=== PATIENT | male | born 1990 | race Two or more races ===

== ENCOUNTER 2017-02-13 12:41 | Emergency (ER) | payer OTHER ==
--- NOTE | 2017-02-13 14:34 | ER Document Report ---
ED Blood Sugar Problem <SYED MARIA - Last Filed: 02/13/17 16:11> - General Mode of Arrival: Ambulatory Information source: Patient <MILY BULL - Last Filed: 02/21/17 14:04> <VERONICA LUO - Last Filed: 02/22/17 03:22> - General Chief Complaint: High Blood Sugar Stated Complaint: BLOOD SUGAR PROBLEM Time Seen by Provider: 02/13/17 14:26 Notes: Patient is a 26 year old male who presents to the ED with a history of diabetes and concerns for going into DKA. Patient states when he has been checking his sugars today the glucometer kept reading high. Patient states he has been diabetic since age 6. Patient has been running out of his medication more often than he normally does. Patient states he went to the pharmacy but since he is 2 days early on his refill he was unable to do so. Patient has been out of his insulin since yesterday. Patient reports heartburn, nausea, vomiting and more frequent urination. Patient denies diarrhea. Patient states he has been in DKA multiple times but hsa not had an admission since September. Patient moved to the area 2 weeks ago. (MILY BULL) - Related Data Allergies/Adverse Reactions: No Known Allergies Allergy (Unverified 02/14/17 00:06) Past Medical History - General Information source: Patient - Social History Smoking Status: Unknown if Ever Smoked Family History: Reviewed & Not Pertinent Endocrine Medical History: Reports: Hx Diabetes Mellitus Type 2 Renal/ Medical History: Denies: Hx Peritoneal Dialysis <JORGITO,MILY - Last Filed: 02/21/17 14:04> Review of Systems - Review of Systems Constitutional: No symptoms reported EENT: No symptoms reported Cardiovascular: No symptoms reported Respiratory: No symptoms reported Gastrointestinal: See HPI, Nausea, Vomiting. denies: Abdominal pain, Diarrhea Genitourinary: No symptoms reported Male Genitourinary: No symptoms reported Musculoskeletal: No symptoms reported Skin: No symptoms reported Hematologic/Lymphatic: No symptoms reported Neurological/Psychological: No symptoms reported <MILY BULL - Last Filed: 02/21/17 14:04> Physical Exam - General General appearance: Appears well, Alert In distress: None - HEENT Head: Normocephalic, Atraumatic Eyes: Normal Extraocular movements intact: Yes Pupils: PERRL - Respiratory Respiratory status: No respiratory distress Breath sounds: Normal - Cardiovascular Rhythm: Regular Heart sounds: Normal auscultation Murmur: No - Abdominal Inspection: Normal Distension: No distension Tenderness: Nontender - Back Back: Normal - Extremities General upper extremity: Normal inspection, Normal ROM General lower extremity: Normal inspection, Normal ROM - Neurological Neuro grossly intact: Yes - Psychological Associated symptoms: Normal affect, Normal mood - Skin Skin Temperature: Warm Skin Moisture: Dry Skin Color: Normal <MILY BULL - Last Filed: 02/21/17 14:04> Course - Laboratory Result Diagrams: 02/13/17 15:38 02/13/17 15:38 <SYED MARIA - Last Filed: 02/13/17 16:11> - Laboratory Result Diagrams: 02/13/17 15:38 02/13/17 17:10 <MILY BULL - Last Filed: 02/21/17 14:04> - Laboratory Result Diagrams: 02/13/17 15:38 02/13/17 17:10 <VERONICA LUO - Last Filed: 02/22/17 03:22> - Re-evaluation Re-evalutation: 02/13/17 21:55 Patient presents the emergency department concerned that he is in DKA. He says he recently moved here and has been out of his insulin for 2 days. He is nauseated but no vomiting. He says he tried to go to the pharmacy with a told him his refill was 2 days early would not refill it. He denies any headache blurred vision double vision chest pain shortness of breath he denies any abdominal pain says is at increased urination. On examination well-appearing nontoxic no altered mental status heart lungs are clear. Workup is put in place for DKA assessment and evaluation. An Accu-Chek is reading under 300. ( VERONICA LUO) - Vital Signs Vital signs: Temp Pulse Resp BP Pulse Ox 97.5 F 106 H 17 157/84 H 96 02/13/17 20:00 02/13/17 12:49 02/13/17 20:00 02/13/17 19:58 02/13/17 20:00 - Laboratory Laboratory results interpreted by me: 02/13/17 02/13/17 02/13/17 12:50 14:42 15:00 WBC RBC Seg Neutrophils % Lymphocytes % Monocytes % Absolute Neutrophils Carbonic Acid ABG pCO2 ABG pO2 ABG HCO3 ABG Total CO2 ABG O2 Saturation Carbon Dioxide Anion Gap BUN Glucose POC Glucose 432 H* 367 H Urine Protein 30 H Urine Glucose (UA) >=500 H Urine Ketones 80 H 02/13/17 02/13/17 02/13/17 15:38 15:38 17:10 WBC 12.7 H RBC 5.56 H Seg Neutrophils % 84.5 H Lymphocytes % 12.0 L Monocytes % 2.7 L Absolute Neutrophils 10.7 H Carbonic Acid 0.92 L ABG pCO2 30.6 L ABG pO2 124.4 H ABG HCO3 17.5 L ABG Total CO2 18.4 L ABG O2 Saturation 98.4 H Carbon Dioxide 18 L Anion Gap 21 H BUN 21 H Glucose 310 H POC Glucose Urine Protein Urine Glucose (UA) Urine Ketones 02/13/17 18:19 WBC RBC Seg Neutrophils % Lymphocytes % Monocytes % Absolute Neutrophils Carbonic Acid ABG pCO2 ABG pO2 ABG HCO3 ABG Total CO2 ABG O2 Saturation Carbon Dioxide Anion Gap BUN Glucose POC Glucose 202 H Urine Protein Urine Glucose (UA) Urine Ketones Discharge <SYED MARIA - Last Filed: 02/13/17 16:11> <MILY BULL - Last Filed: 02/21/17 14:04> <VERONICA LUO - Last Filed: 02/22/17 03:22> - Discharge Clinical Impression: Type 1 diabetes mellitus with hyperglycemia Condition: Stable Disposition: HOME, SELF-CARE Additional Instructions: RESUME TAKING INSULIN PRESCRIBED BY YOUR PRIMARY CARE PROVIDER. FOLLOW YOUR RECOMMENDED DIABETIC DIET. FOLLOW UP WITH YOUR PRIMARY CARE PROVIDER WITHIN THE NEXT 2-3 DAYS. RETURN TO E.R. IF YOU GET WORSE IN ANY WAY. Scribe Attestation: 02/13/17 21:57 I personally performed the services described in the documentation reviewed the documentation recorded by my scribe in my presence and it accurately and completely records my words and actions (VERONICA LUO) Scribe Documentation - Scribe Written by Camiibe:: keri Feldman, 02/13/2017, 1446 acting as scribe for :: Rd <MILY BULL - Last Filed: 02/21/17 14:04>
[2017-02-13] MEDS ORDERED: NORMAL SALINE 1000 ML 3,000 ML IV ONE (14:41)
[2017-02-13] MEDS ORDERED: INSULIN REG, HUMAN 100 UNIT/ML 3 ML VIAL (PYX) IV ONE (14:43)
[2017-02-13 15:33] LABS: APPEARANCE,URINE CLEAR; BILIRUBIN,URINE NEGATIVE (NEGATIVE); GLUCOSE, URINE >=500 mg/dL (NEGATIVE); KETONES,URINE 80 mg/dL (NEGATIVE); LEUKOCYTE ESTERASE,URINE NEGATIVE (NEGATIVE); NITRITE,URINE NEGATIVE (NEGATIVE); PROTEIN,URINE 30 mg/dL (NEGATIVE); URINE SPECIFIC GRAVITY 1.029; UROBILINOGEN,URINE NEGATIVE mg/dL (<2.0)
[2017-02-13] MEDS ORDERED: ONDANSETRON HCL INJ/PF 4 MG/2 ML SDV IV ONE (15:54)
[2017-02-13] MEDS ORDERED: NORMAL SALINE 100 ML with INSULIN REGULAR, HUMAN 100 UNIT IV PRN ×2 (15:55)
[2017-02-13 16:01] LABS: ABSOLUTE BASOPHILS # (AUTO) 0.1 10^3/uL (0.0-0.2); ABSOLUTE LYMPHOCYTES (AUTO) 1.5 10^3/uL (0.5-4.7); ABSOLUTE MONOCYTES (AUTO) 0.3 10^3/uL (0.1-1.4); ABSOLUTE NEUT (AUTO) 10.7 10^3/uL (1.7-8.2); ARTERIAL BLOOD BASE EXCESS -6.2 mmol/L; ARTERIAL BLOOD O2 SATURATION 98.4 % (94-98); BASOPHILS % (AUTO) 0.5 % (0-2); EOSINOPHILS % (AUTO) 0.3 % (0-6); HEMATOCRIT 49.4 % (37.9-51.0); HEMOGLOBIN 16.5 g/dL (13.5-17.0); HGB HCT DIFFERENCE 0.1; MEAN CORPUSCULAR HEMOGLOBIN 29.7 pg (27.0-33.4); MEAN CORPUSCULAR HGB CONC 33.4 g/dL (32.0-36.0); MEAN CORPUSCULAR VOLUME 89 fl (80-97); MONOCYTES % (AUTO) 2.7 % (3-13); RED BLOOD COUNT 5.56 10^6/uL (4.35-5.55); RED CELL DISTRIBUTION WIDTH 13.7 % (11.5-14.0); SEGMENTED NEUTROPHILS % (AUTO) 84.5 % (42-78); WHITE BLOOD COUNT 12.7 10^3/uL (4.0-10.5)
--- NOTE | 2017-02-13 17:30 | ER Document Report ---
ED Blood Sugar Problem - General Chief Complaint: High Blood Sugar Stated Complaint: BLOOD SUGAR PROBLEM Time Seen by Provider: 02/13/17 14:26 Mode of Arrival: Ambulatory Information source: Patient - HPI Onset: Yesterday Onset/Duration: Gradual Quality of pain: No pain Severity: Moderate Insulin taken: No - RAN OUT Associated symptoms: Dry mucous membranes, Increased thirst, Nausea, Vomiting Similar symptoms previously: Yes Recently seen / treated by doctor: No Notes: PATIENT SAYS HE RAN OUT OF INSULIN YESTERDAY, UNABLE TO GET REFILL DUE TO NO INSURANCE COVERAGE UNTIL 02/15 (RAN OUT PREMATURELY DUE TO CHANGE IN DOSAGE). Past Medical History - General Information source: Patient - Social History Smoking Status: Unknown if Ever Smoked Chew tobacco use (# tins/day): No Smoking Education Provided: No Frequency of alcohol use: Rare Drug Abuse: None Lives with: Friend Family History: None Patient has suicidal ideation: No Patient has homicidal ideation: No - Past Medical History Cardiac Medical History: Reports: None Pulmonary Medical History: Reports: None EENT Medical History: Reports: None Neurological Medical History: Reports: None Endocrine Medical History: Reports: Hx Diabetes Mellitus Type 1 Renal/ Medical History: Reports: None. Denies: Hx Peritoneal Dialysis Malignancy Medical History: Reports None GI Medical History: Reports: None Musculoskeltal Medical History: Reports None Psychiatric Medical History: Reports: None Traumatic Medical History: Reports: None Surgical Hx: Negative Review of Systems - Review of Systems Constitutional: No symptoms reported EENT: No symptoms reported Cardiovascular: No symptoms reported Respiratory: No symptoms reported Gastrointestinal: See HPI Genitourinary: No symptoms reported Musculoskeletal: No symptoms reported Skin: No symptoms reported Neurological/Psychological: No symptoms reported Physical Exam - Vital signs Vitals: Temp Pulse Resp BP Pulse Ox 97.6 F 106 H 18 136/89 H 98 02/13/17 12:49 02/13/17 12:49 02/13/17 12:49 02/13/17 12:49 02/13/17 12:49 Interpretation: Hypertensive, Tachycardic. No: Tachypneic, Febrile - General General appearance: Appears well, Alert In distress: None - HEENT Head: Normocephalic Eyes: Normal Conjunctiva: Normal Ears: Normal Nasal: Normal Mouth/Lips: Normal Mucous membranes: Dry Pharynx: Normal Neck: Normal - Respiratory Respiratory status: No respiratory distress Breath sounds: Normal - Cardiovascular Rhythm: Regular, Tachycardia Heart sounds: Normal auscultation Murmur: No - Abdominal Inspection: Normal Distension: No distension Bowel sounds: Normal - Back Back: Normal - Extremities General upper extremity: Normal inspection General lower extremity: Normal inspection - Neurological Neuro grossly intact: Yes Cognition: Normal Orientation: AAOx4 - Psychological Associated symptoms: Normal affect, Normal mood - Skin Skin Temperature: Warm Skin Moisture: Dry Skin Color: Normal Skin Turgor: Loose Course - Vital Signs Vital signs: Temp Pulse Resp BP Pulse Ox 97.6 F 106 H 17 142/64 H 100 02/13/17 12:49 02/13/17 12:49 02/13/17 19:01 02/13/17 19:01 02/13/17 19:01 - Laboratory Result Diagrams: 02/13/17 15:38 02/13/17 17:10 Laboratory results interpreted by me: 02/13/17 02/13/17 02/13/17 12:50 14:42 15:00 WBC RBC Seg Neutrophils % Lymphocytes % Monocytes % Absolute Neutrophils Carbonic Acid ABG pCO2 ABG pO2 ABG HCO3 ABG Total CO2 ABG O2 Saturation Carbon Dioxide Anion Gap BUN Glucose POC Glucose 432 H* 367 H Urine Protein 30 H Urine Glucose (UA) >=500 H Urine Ketones 80 H 02/13/17 02/13/17 02/13/17 15:38 15:38 17:10 WBC 12.7 H RBC 5.56 H Seg Neutrophils % 84.5 H Lymphocytes % 12.0 L Monocytes % 2.7 L Absolute Neutrophils 10.7 H Carbonic Acid 0.92 L ABG pCO2 30.6 L ABG pO2 124.4 H ABG HCO3 17.5 L ABG Total CO2 18.4 L ABG O2 Saturation 98.4 H Carbon Dioxide 18 L Anion Gap 21 H BUN 21 H Glucose 310 H POC Glucose Urine Protein Urine Glucose (UA) Urine Ketones 02/13/17 18:19 WBC RBC Seg Neutrophils % Lymphocytes % Monocytes % Absolute Neutrophils Carbonic Acid ABG pCO2 ABG pO2 ABG HCO3 ABG Total CO2 ABG O2 Saturation Carbon Dioxide Anion Gap BUN Glucose POC Glucose 202 H Urine Protein Urine Glucose (UA) Urine Ketones Discharge - Discharge Clinical Impression: Hyperglycemia due to type 1 diabetes mellitus Condition: Stable Disposition: HOME, SELF-CARE Additional Instructions: RESUME TAKING INSULIN PRESCRIBED BY YOUR PRIMARY CARE PROVIDER. FOLLOW YOUR RECOMMENDED DIABETIC DIET. FOLLOW UP WITH YOUR PRIMARY CARE PROVIDER WITHIN THE NEXT 2-3 DAYS. RETURN TO E.R. IF YOU GET WORSE IN ANY WAY. Prescriptions: Insulin Glargine,Hum.rec.anlog [Lantus] 23 unit SQ QHS #10 ml Insulin Lispro [Humalog] See Protocol SQ DAILY #10 ml
[2017-02-13 17:38] LABS: BLOOD UREA NITROGEN 21 mg/dL (7-20); CALCIUM 9.8 mg/dL (8.4-10.2); CHLORIDE 101 mmol/L (98-107); GLUCOSE 310 mg/dL (75-110)
[2017-02-13 18:04] LABS: CARBON DIOXIDE 18 mmol/L (22-30); POTASSIUM 4.6 mmol/L (3.6-5.0); SODIUM 139.7 mmol/L (137-145)
[2017-02-13 18:05] LABS: ANION GAP 21 (5-19)
[2017-02-13] MEDS ORDERED: INSULIN REG, HUMAN 100 UNIT/ML 3 ML VIAL (PYX) ONE (18:07)
[2017-02-13 20:06] VITALS: BP 157/84
== END 2017-02-13 20:06 | disposition home or self-care (01) ==
LOC: ER 12:41
DX: E10.65 Type 1 diabetes mellitus with hyperglycemia (principal); R12 Heartburn; R00.0 Tachycardia, unspecified; R03.0 Elevated blood-pressure reading, without diagnosis of hypertension
CPT/HCPCS: 99285; 96361; 96374; 36415; 82962; 82803; 85025; 80048; 81001; J1815; J2405; J7030

== ENCOUNTER 2017-02-13 23:50 | Inpatient (IN) | payer OTHER ==
[2017-02-14] MEDS ORDERED: ONDANSETRON HCL INJ/PF 4 MG/2 ML SDV IV ONE (00:59)
[2017-02-14] MEDS ORDERED: NORMAL SALINE 1000 ML 1,000 ML IV ONE ×3 (00:59→02:29)
--- NOTE | 2017-02-14 01:02 | ER Document Report ---
ED General - General Chief Complaint: High Blood Sugar Stated Complaint: SEEN EARLIER FOR BLOOD SUGAR PROBLEMS, FEELS WORSE Time Seen by Provider: 02/14/17 00:54 Notes: Patient is a 26-year-old male, type I diabetic, that was seen here earlier today and went home but returns after he began to feel worse and he began to vomit. He had only vomited once earlier and he states he was hoping he could make it through the night and fill his scripts in the morning. He has vomited 7 times in the past hour. Patient states that he was unable to make the pharmacy to fill the prescription of insulin that he was given, he moved here from [place] 2 weeks ago and he was unable to fill his prescription like usual until 2 days from now. - Related Data Allergies/Adverse Reactions: No Known Allergies Allergy (Unverified 02/14/17 00:06) Past Medical History - General Information source: Patient - Social History Smoking Status: Never Smoker Frequency of alcohol use: None Drug Abuse: None Lives with: Family - brother Family History: None Endocrine Medical History: Reports: Hx Diabetes Mellitus Type 1 Renal/ Medical History: Denies: Hx Peritoneal Dialysis Surgical Hx: Negative - Immunizations Immunizations up to date: Yes Hx Diphtheria, Pertussis, Tetanus Vaccination: Yes Review of Systems - Review of Systems Constitutional: See HPI EENT: No symptoms reported Cardiovascular: No symptoms reported Respiratory: No symptoms reported Gastrointestinal: See HPI Genitourinary: No symptoms reported Male Genitourinary: No symptoms reported Musculoskeletal: No symptoms reported Skin: No symptoms reported Hematologic/Lymphatic: No symptoms reported Neurological/Psychological: No symptoms reported Physical Exam - Vital signs Vitals: Temp Pulse Resp BP Pulse Ox 97.8 F 108 H 20 143/72 H 100 02/14/17 00:08 02/14/17 00:08 02/14/17 00:08 02/14/17 00:08 02/14/17 00:08 Interpretation: Normal - General General appearance: Alert, Anxious In distress: Mild - Patient with mild tachypnea, slightly pale, appears uncomfortable - HEENT Head: Normocephalic, Atraumatic Eyes: Normal Pupils: PERRL - Respiratory Respiratory status: No respiratory distress, Tachypnea - slight Breath sounds: Normal Chest palpation: Normal - Cardiovascular Rhythm: Regular, Tachycardia Heart sounds: Normal auscultation, S1 appreciated, S2 appreciated Murmur: No - Abdominal Inspection: Normal Distension: No distension Bowel sounds: Normal Tenderness: Tender - Very mild generalized tenerness. No: Guarding Organomegaly: No organomegaly - Back Back: Normal, Nontender - Extremities General upper extremity: Normal inspection, Nontender, Normal color, Normal ROM , Normal temperature General lower extremity: Normal inspection, Nontender, Normal color, Normal ROM , Normal temperature, Normal weight bearing. No: Ronda's sign - Neurological Neuro grossly intact: Yes Cognition: Normal Orientation: AAOx4 [place] Coma Scale Eye Opening: Spontaneous [place] Coma Scale Verbal: Oriented [place] Coma Scale Motor: Obeys Commands [place] Coma Scale Total: 15 Speech: Normal Motor strength normal: LUE, RUE, LLE, RLE Sensory: Normal - Psychological Associated symptoms: Normal affect, Normal mood - Skin Skin Temperature: Warm Skin Moisture: Dry Skin Color: Pale Course - Re-evaluation Re-evalutation: Patient with Kussmaul respirations, vomited at bedside, is slightly pale, tachycardic, and well-appearing. Consistent with diabetic ketoacidosis. Giving Zofran, IV fluids, placed on monitor. Placing 2 IVs. Patient given additional fluids, initial blood gas shows acidosis at pH of 7.15. Chemistry shows hyperkalemia at 5.9, anion gap is present. Starting insulin drip. EKG showing peaked T waves. Giving calcium gluconate. CBC shows leukocytosis, nonspecific, most likely stress response and from vomiting. Urinalysis shows ketones. On re-evaluation patient stopped vomiting, still tachycardic, no significant change. Discussed with Dr. Avilez. Patient starting to look more comfortable, breathing improved, resting quietly, still oriented and arousable. Discussed with Dr. Connor, patient will be admitted to IMCU. - Vital Signs Vital signs: Temp Pulse Resp BP Pulse Ox 98.5 F 118 H 20 148/75 H 100 02/14/17 06:03 02/14/17 06:03 02/14/17 06:03 02/14/17 06:03 02/14/17 06:03 - Laboratory Result Diagrams: 02/14/17 02:56 02/14/17 03:58 Laboratory results interpreted by me: 02/14/17 02/14/17 02/14/17 01:44 01:44 01:44 WBC RBC Hgb Seg Neuts % (Manual) Lymphocytes % (Manual) Monocytes % (Manual) Metamyelocytes % Abs Neuts (Manual) VBG pH 7.15 L* VBG pCO2 29.2 L VBG HCO3 10.0 L Potassium 5.9 H D Carbon Dioxide 7 L* D Anion Gap 27 H Glucose 424 H* Phosphorus 5.0 H Direct Bilirubin 0.5 H Urine Protein Urine Glucose (UA) Urine Ketones 02/14/17 02/14/17 02:52 02:56 WBC 23.6 H RBC 4.34 L Hgb 12.8 L D Seg Neuts % (Manual) 84 H Lymphocytes % (Manual) 9 L Monocytes % (Manual) 2 L Metamyelocytes % 2 H Abs Neuts (Manual) 21.0 H VBG pH VBG pCO2 VBG HCO3 Potassium Carbon Dioxide Anion Gap Glucose Phosphorus Direct Bilirubin Urine Protein 30 H Urine Glucose (UA) >=500 H Urine Ketones 80 H Critical Care Note - Critical Care Note Total time excluding time spent on procedures (mins): 35 - Diabetic ketoacidosis , vomiting, hyperkalemia Comments: Please allow 35 minutes of critical care time for evaluation and treatment of patient with diabetic ketoacidosis and hyperkalemia requiring multiple re- evaluations, review of previous labs, IV fluids, insulin drip, calcium gluconate , consultation and admission to the hospital. Discharge - Discharge Clinical Impression: Tachycardia, Hyperkalemia DKA (diabetic ketoacidoses) Qualifiers: Diabetes mellitus type: type 1 Diabetes mellitus complication detail: without coma Qualified Code(s): E10.10 - Type 1 diabetes mellitus with ketoacidosis without coma Vomiting Qualifiers: Vomiting type: unspecified Vomiting Intractability: non-intractable Nausea presence: with nausea Qualified Code(s): R11.2 - Nausea with vomiting, unspecified Condition: Fair Disposition: ADMITTED INPATIENT Admitting Provider: Hospitalist Unit Admitted: [facility]
[2017-02-14] MEDS ORDERED: DEXTROSE 40% GEL 15 GM TUBE PO PRN ×4 (01:59→03:38)
[2017-02-14] MEDS ORDERED: GLUCAGON,HUMAN RECOMB 1 MG INJ IM PRN ×2 (01:59→03:38)
[2017-02-14] MEDS ORDERED: DEXTROSE 50%-WATER 25 GM/50 ML DISP.SYRIN IV PRN ×4 (01:59→03:38)
[2017-02-14 02:01] LABS: VENOUS BLOOD BASE EXCESS -17.5 mmol/L; VENOUS BLOOD PCO2 29.2 mmHg (35-63)
[2017-02-14] MEDS ORDERED: NORMAL SALINE 100 ML with INSULIN REGULAR, HUMAN 100 UNIT IV PRN ×6 (02:01→18:38)
[2017-02-14 02:07] LABS: VENOUS BLOOD PH 7.15 (7.30-7.42)
[2017-02-14 02:10] LABS: ALANINE AMINOTRANSFERASE 30 U/L (21-72); ALBUMIN 4.6 g/dL (3.5-5.0); ALKALINE PHOSPHATASE 85 U/L (38-126); ASPARTATE AMINO TRANSFERASE 19 U/L (17-59); BILIRUBIN,DIRECT 0.5 mg/dL (0.0-0.4); BLOOD UREA NITROGEN 19 mg/dL (7-20); CALCIUM 10.1 mg/dL (8.4-10.2); CHLORIDE 105 mmol/L (98-107); CREATININE RESULT 0.85 mg/dL (0.52-1.25); TOTAL PROTEIN 8.1 g/dL (6.3-8.2)
[2017-02-14 02:23] LABS: SODIUM 139.2 mmol/L (137-145)
[2017-02-14 02:27] LABS: ANION GAP 27 (5-19); POTASSIUM 5.9 mmol/L (3.6-5.0)
[2017-02-14 02:29] LABS: CARBON DIOXIDE 7 mmol/L (22-30); GLUCOSE 424 mg/dL (75-110)
[2017-02-14] MEDS ORDERED: CALCIUM GLUCONATE 1000 MG/10 ML INJ IV ONE (02:29)
[2017-02-14] MEDS ORDERED: INSULIN REG, HUMAN 100 UNIT/ML 3 ML VIAL (PYX) ONE (02:41)
[2017-02-14 03:12] LABS: HEMATOCRIT 39.4 % (37.9-51.0); MEAN CORPUSCULAR HEMOGLOBIN 29.5 pg (27.0-33.4); MEAN CORPUSCULAR HGB CONC 32.5 g/dL (32.0-36.0); MEAN CORPUSCULAR VOLUME 91 fl (80-97); RED BLOOD COUNT 4.34 10^6/uL (4.35-5.55); RED CELL DISTRIBUTION WIDTH 13.8 % (11.5-14.0); WHITE BLOOD COUNT 23.6 10^3/uL (4.0-10.5)
[2017-02-14 03:25] LABS: HEMOGLOBIN 12.8 g/dL (13.5-17.0)
[2017-02-14 03:27] LABS: BAND NEUTROPHILS % (MANUAL) 3 % (3-5); BASOPHILS % (MANUAL) 0 % (0-2); EOSINOPHILS % (MANUAL) 0 % (0-6); LYMPHOCYTES % (MANUAL) 9 % (13-45); TOTAL CELLS COUNTED 100
[2017-02-14 03:30] LABS: ANISOCYTOSIS SLIGHT; BURR CELLS 2+; POIKILOCYTOSIS 2+; TEAR DROP CELLS SLIGHT; TOXIC GRANULATION SLIGHT
[2017-02-14] MEDS ORDERED: ONDANSETRON HCL INJ/PF 4 MG/2 ML SDV IV PRN ×2 (03:38→07:24)
[2017-02-14] MEDS ORDERED: ACETAMINOPHEN 325 MG TABLET PO PRN (03:38)
[2017-02-14 03:41] LABS: APPEARANCE,URINE CLEAR; BILIRUBIN,URINE NEGATIVE (NEGATIVE); GLUCOSE, URINE >=500 mg/dL (NEGATIVE); KETONES,URINE 80 mg/dL (NEGATIVE); LEUKOCYTE ESTERASE,URINE NEGATIVE (NEGATIVE); NITRITE,URINE NEGATIVE (NEGATIVE); PROTEIN,URINE 30 mg/dL (NEGATIVE); URINE SPECIFIC GRAVITY 1.017; UROBILINOGEN,URINE NEGATIVE mg/dL (<2.0)
[2017-02-14 04:01] LABS: MAGNESIUM 1.8 mg/dL (1.6-2.3)
[2017-02-14 04:11] LABS: URINE BARBITURATES SCREEN NEGATIVE; URINE METHADONE SCREEN NEGATIVE; URINE OPIATES LOW NEGATIVE; URINE PHENCYCLIDINE SCREEN NEGATIVE
[2017-02-14 04:30] LABS: BLOOD UREA NITROGEN 18 mg/dL (7-20); CALCIUM 9.7 mg/dL (8.4-10.2); CHLORIDE 111 mmol/L (98-107); CREATININE RESULT 0.84 mg/dL (0.52-1.25); GLUCOSE 337 mg/dL (75-110); POTASSIUM 5.7 mmol/L (3.6-5.0); SODIUM 140.4 mmol/L (137-145)
[2017-02-14 04:54] LABS: CARBON DIOXIDE < 5 mmol/L (22-30)
--- NOTE | 2017-02-14 05:47 | PDOC H&P ---
History of Present Illness Admission Date/PCP: 02/14/17 03:38 Patient complains of: Hyperglycemia nausea and vomiting History of Present Illness: JUAN PABLO COREY is a 26 year old male with a past medical history of insulin- dependent diabetes who has had limited access to limits he is recently relocated to the area from [place]. He has otherwise felt well but rationing his insulin over the last few days. Over the last 24 hours he has had polyuria polydipsia abdominal pain nausea vomiting prompting her to seek evaluation emergency room earlier in the day was found to be without acidosis and was discharged with a insulin prescription however became acutely worse prompting reevaluation and significantly worse labs including a bicarb of only 7 and increased anion gap. He is referred to the hospital for admission. Past Medical History Endocrine Medical History: Reports: Diabetes Mellitus Type 1 Social History Information Source: Patient, [facility], [facility] Records Lives with: Family Smoking Status: Never Smoker Frequency of Alcohol Use: None Drugs: None Family History Family History: None Parental Family History Reviewed: Yes Children Family History Reviewed: Yes Sibling(s) Family History Reviewed.: Yes Medication/Allergy Home Medications: Insulin Glargine,Hum.rec.anlog [Lantus] 23 unit SQ QHS #10 ml 02/13/17 Insulin Lispro [Humalog] See Protocol SQ DAILY #10 ml 02/13/17 Allergies/Adverse Reactions: No Known Allergies Allergy (Unverified 02/14/17 00:06) Review of Systems Constitutional: ABSENT: chills, fever(s), headache(s), weight gain, weight loss Eyes: ABSENT: visual disturbances Ears: ABSENT: hearing changes Cardiovascular: ABSENT: chest pain, dyspnea on exertion, edema, orthropnea, palpitations Respiratory: ABSENT: cough, hemoptysis Gastrointestinal: ABSENT: abdominal pain, constipation, diarrhea, hematemesis, hematochezia, nausea, vomiting Genitourinary: ABSENT: dysuria, hematuria Musculoskeletal: ABSENT: joint swelling Integumentary: ABSENT: rash, wounds Neurological: ABSENT: abnormal gait, abnormal speech, confusion, dizziness, focal weakness, syncope Psychiatric: ABSENT: anxiety, depression, homidical ideation, suicidal ideation Endocrine: ABSENT: cold intolerance, heat intolerance, polydipsia, polyuria Hematologic/Lymphatic: ABSENT: easy bleeding, easy bruising Physical Exam Vital Signs: Temp Pulse Resp BP Pulse Ox 97.8 F 108 H 17 117/57 L 100 02/14/17 00:08 02/14/17 00:08 02/14/17 05:01 02/14/17 05:01 02/14/17 05:01 General appearance: PRESENT: cooperative, mild distress, thin, well-developed, well-nourished Head exam: PRESENT: atraumatic, normocephalic Eye exam: PRESENT: conjunctiva pink, EOMI, PERRLA. ABSENT: scleral icterus Ear exam: PRESENT: normal external ear exam Mouth exam: PRESENT: dry mucosa, neck supple. ABSENT: laceration, moist Neck exam: ABSENT: carotid bruit, JVD, lymphadenopathy, thyromegaly Respiratory exam: PRESENT: clear to auscultation lynsday, tachypnea. ABSENT: rales , rhonchi, wheezes Cardiovascular exam: PRESENT: RRR, tachycardia. ABSENT: diastolic murmur, rubs , systolic murmur Pulses: PRESENT: normal dorsalis pedis pul Vascular exam: PRESENT: normal capillary refill GI/Abdominal exam: PRESENT: normal bowel sounds, soft. ABSENT: distended, guarding, mass, organolmegaly, rebound, tenderness Rectal exam: PRESENT: deferred Extremities exam: PRESENT: full ROM. ABSENT: calf tenderness, clubbing, pedal edema Neurological exam: PRESENT: alert, awake, oriented to person, oriented to place , oriented to time, oriented to situation, CN II-XII grossly intact. ABSENT: motor sensory deficit Psychiatric exam: PRESENT: appropriate affect, normal mood. ABSENT: homicidal ideation, suicidal ideation Skin exam: PRESENT: abrasion Results Laboratory Results: 02/14/17 03:58 02/14/17 03:58 Sodium 140.4 Potassium 5.7 H Chloride 111 H Carbon Dioxide < 5 L* Anion Gap [facility] BUN 18 Creatinine 0.84 Est GFR ( Amer) > 60 Est GFR (Non-Af Amer) > 60 Glucose 337 H Calcium 9.7 Assessment & Plan - Diagnosis (1) DKA (diabetic ketoacidoses) Qualifiers: Diabetes mellitus type: type 1 Diabetes mellitus complication detail: without coma Qualified Code(s): E10.10 - Type 1 diabetes mellitus with ketoacidosis without coma Is this a current diagnosis for this admission?: YesPlan: Severe diabetic ketoacidosis secondary to insufficient insulin. Patient admitted to [facility] with DKA care set aggressive IV fluid hydration, IV insulin and electrolyte repletion recurrent reevaluation of chemistry education. (2) Tachycardia Is this a current diagnosis for this admission?: YesPlan: Secondary to acidosis and dehydration resolved underlying cause and IV fluid challenge. (3) Vomiting Qualifiers: Vomiting type: unspecified Vomiting Intractability: non-intractable Nausea presence: with nausea Qualified Code(s): R11.2 - Nausea with vomiting, unspecified Is this a current diagnosis for this admission?: YesPlan: Secondary to DKA, symptomatic management - Time Time Spent: 30 to 50 Minutes - Inpatient Certification Medical Necessity: Need Close Monitoring Due to Risk of Patient Decompensation
[2017-02-14] MEDS: NORMAL SALINE 1000 ML 1,000 ML IV SCH ×2 (06:01→08:58)
[2017-02-14] MEDS: HEPARIN SOD (PORCINE) 5,000 UNIT/ML 1 ML SYRINGE SUBCUT SCH ×3 (06:17→21:33)
[2017-02-14 08:02] LABS: ANION GAP 17 (5-19); BLOOD UREA NITROGEN 15 mg/dL (7-20); CALCIUM 9.1 mg/dL (8.4-10.2); CARBON DIOXIDE 11 mmol/L (22-30); CHLORIDE 115 mmol/L (98-107); CREATININE RESULT 0.74 mg/dL (0.52-1.25); GLUCOSE 145 mg/dL (75-110)
[2017-02-14 08:11] LABS: POTASSIUM 4.7 mmol/L (3.6-5.0)
[2017-02-14] MEDS: DOCUSATE SODIUM 100 MG CAPSULE PO SCH ×2 (09:27→16:24)
[2017-02-14] MEDS: ONDANSETRON HCL INJ/PF 4 MG/2 ML SDV IV PRN ×2 (09:58→18:14)
--- NOTE | 2017-02-14 11:32 | PDOC PROGRESS REPORT ---
Subjective Progress Note for:: 02/14/17 Subjective:: This is a follow-up visit for DKA. The patient was seen and had complaints of some nausea that he said was relieved by Zosyn. He would like to try some clear liquids but does not feel comfortable going further than that because of the GI upset. He denies any chest pain or shortness of breath. Physical Exam Vital Signs: Temp Pulse Resp BP Pulse Ox 98.9 F 119 H 14 138/61 H 100 02/14/17 07:46 02/14/17 07:46 02/14/17 07:46 02/14/17 07:46 02/14/17 07:46 GENERAL: This is a well-developed thin/underweight appearing male resting in bed currently in no acute distress. HEART: Tachycardic. No murmurs rubs or gallops LUNGS: Clear to auscultation bilaterally with equal rise and fall of the chest. ABDOMEN: Soft, nontender, nondistended with normoactive bowel sounds EXTREMETIES: No clubbing, cyanosis or edema. 2+ peripheral pulses bilaterally. NEURO: Awake, alert and oriented 3. Cranial nerves II through XII are grossly intact. Results Laboratory Results: 02/14/17 07:40 02/14/17 02/14/17 03:58 07:40 Sodium 140.4 143.0 Potassium 5.7 H 4.7 D Chloride 111 H 115 H Carbon Dioxide < 5 L* 11 L Anion Gap UAT TESTER 17 BUN 18 15 Creatinine 0.84 0.74 Est GFR ( Amer) > 60 > 60 Est GFR (Non-Af Amer) > 60 > 60 Glucose 337 H 145 H Calcium 9.7 9.1 Assessment & Plan - Diagnosis (1) DKA (diabetic ketoacidoses) Qualifiers: Diabetes mellitus type: type 1 Diabetes mellitus complication detail: without coma Qualified Code(s): E10.10 - Type 1 diabetes mellitus with ketoacidosis without coma Is this a current diagnosis for this admission?: YesPlan: The patient has a blood sugar under 250 however he still has an anionic gap. Will change to lactated Ringer's. Discontinue insulin drip once the gap is closed. Patient tells me that he has prescriptions for his insulin. Part of the problem was that he had to stretch his insulin for 2 days before he could fill it because insurance would not pay for it. The patient does have insurance and is confident that now that the month has renewed itself he will be able to get his insulin as an outpatient. He is confirmed for me that he does not need any prescriptions. (2) Hyperkalemia Plan: Resolved. (3) Tachycardia Is this a current diagnosis for this admission?: YesPlan: the patient remains tachycardic. He can confirms for me that he usually has a high heart rate. We will see what his heart rate does as he is appropriately resuscitated. (4) Vomiting Qualifiers: Vomiting type: unspecified Vomiting Intractability: non-intractable Nausea presence: with nausea Qualified Code(s): R11.2 - Nausea with vomiting, unspecified Is this a current diagnosis for this admission?: YesPlan: Resolved. But the patient still feels nauseous. Continue Zofran. I will place him on a regular diet. He has instructions to begin with clear liquids and to advance himself as tolerated. (5) Leukocytosis Plan: White count is at 23 at this point I suspect that this is likely due to volume contraction from nausea vomiting and then his underlying DKA. Repeat CBC in the morning. The patient is completely afebrile and has a nontoxic appearance. Continue to monitor. If the patient does spike a fever we will certainly check blood cultures and begin antibiotics. - Time Time Spent with patient: 25-34 minutes - Inpatient Certification Medical Necessity: Need Close Monitoring Due to Risk of Patient Decompensation
[2017-02-14] MEDS ORDERED: INSULIN REG, HUMAN 100 UNIT/ML 3 ML VIAL (PYX) SUBCUT PRN (11:37)
[2017-02-14] MEDS ORDERED: LISINOPRIL 5 MG TABLET PO ONE (12:30)
[2017-02-14 12:32] LABS: ANION GAP 18 (5-19); BLOOD UREA NITROGEN 12 mg/dL (7-20); CALCIUM 9.3 mg/dL (8.4-10.2); CARBON DIOXIDE 11 mmol/L (22-30); CHLORIDE 113 mmol/L (98-107); CREATININE RESULT 0.77 mg/dL (0.52-1.25); GLUCOSE 144 mg/dL (75-110); POTASSIUM 4.7 mmol/L (3.6-5.0); SODIUM 141.5 mmol/L (137-145)
--- NOTE | 2017-02-14 13:59 | EKG REPORT ---
SEVERITY:- OTHERWISE NORMAL ECG - SINUS TACHYCARDIA : Confirmed by: Janet Burk MD 14-Feb-2017 13:58:59
[2017-02-14] MEDS ORDERED: METOCLOPRAMIDE HCL INJ/PF 10 MG/2 ML SDV IV PRN (14:19)
[2017-02-14 16:44] LABS: BLOOD UREA NITROGEN 15 mg/dL (7-20); CALCIUM 9.9 mg/dL (8.4-10.2); CREATININE RESULT 0.82 mg/dL (0.52-1.25); GLUCOSE 341 mg/dL (75-110); POTASSIUM 5.2 mmol/L (3.6-5.0)
[2017-02-14 16:56] LABS: CHLORIDE 111 mmol/L (98-107)
[2017-02-14 17:03] LABS: SODIUM 142.8 mmol/L (137-145)
[2017-02-14 17:06] LABS: ANION GAP 25 (5-19)
[2017-02-14 17:09] LABS: CARBON DIOXIDE 7 mmol/L (22-30)
[2017-02-14] MEDS ORDERED: DEXTROSE 5%-WATER 1000 ML 1,000 ML with SODIUM BICARBONATE 100 MEQ IV PRN ×2 (18:25)
[2017-02-14] MEDS ORDERED: PROMETHAZINE HCL 25 MG SUPP.RECT PR PRN (18:37)
[2017-02-14] MEDS ORDERED: RINGERS SOLUTION,LACTATED 1,000 ML IV PRN (18:37)
[2017-02-14] MEDS ORDERED: INSULIN REG, HUMAN 100 UNIT/ML 3 ML VIAL (PYX) SUBCUT ONE (19:15)
[2017-02-14] MEDS: PROMETHAZINE HCL 25 MG SUPP.RECT PR PRN (20:28)
[2017-02-14 20:41] LABS: BLOOD UREA NITROGEN 17 mg/dL (7-20); CALCIUM 10.3 mg/dL (8.4-10.2); CHLORIDE 110 mmol/L (98-107); CREATININE RESULT 0.98 mg/dL (0.52-1.25); GLUCOSE 302 mg/dL (75-110); POTASSIUM 4.8 mmol/L (3.6-5.0); SODIUM 143.3 mmol/L (137-145)
[2017-02-14 21:04] LABS: ANION GAP 27 (5-19)
[2017-02-14 21:06] LABS: CARBON DIOXIDE 6 mmol/L (22-30)
[2017-02-14] MEDS: POTASSI CL 20 MEQ/D5-1/2NS 1L 1000 ML IV PRN (21:50)
[2017-02-14] MEDS ORDERED: INSULIN GLARGINE,HUM.REC.ANLOG 300 UNIT/3 ML INSULN.PEN SUBCUT SCH (22:00)
[2017-02-15 00:46] LABS: ANION GAP 16 (5-19); BLOOD UREA NITROGEN 16 mg/dL (7-20); CALCIUM 10.3 mg/dL (8.4-10.2); CARBON DIOXIDE 13 mmol/L (22-30); CHLORIDE 115 mmol/L (98-107); CREATININE RESULT 0.88 mg/dL (0.52-1.25); GLUCOSE 236 mg/dL (75-110); POTASSIUM 4.6 mmol/L (3.6-5.0); SODIUM 143.8 mmol/L (137-145)
[2017-02-15] MEDS: POTASSI CL 20 MEQ/D5-1/2NS 1L 1000 ML IV PRN (02:46)
[2017-02-15 04:15] LABS: ABSOLUTE LYMPHOCYTES (AUTO) 2.8 10^3/uL (0.5-4.7); ABSOLUTE MONOCYTES (AUTO) 1.5 10^3/uL (0.1-1.4); BASOPHILS % (AUTO) 0.2 % (0-2); HEMATOCRIT 36.3 % (37.9-51.0); HEMOGLOBIN 12.1 g/dL (13.5-17.0); LYMPHOCYTES % (AUTO) 14.4 % (13-45); MEAN CORPUSCULAR HEMOGLOBIN 29.4 pg (27.0-33.4); MEAN CORPUSCULAR HGB CONC 33.3 g/dL (32.0-36.0); MEAN CORPUSCULAR VOLUME 88 fl (80-97); MONOCYTES % (AUTO) 7.6 % (3-13); RED BLOOD COUNT 4.11 10^6/uL (4.35-5.55); RED CELL DISTRIBUTION WIDTH 13.8 % (11.5-14.0); SEGMENTED NEUTROPHILS % (AUTO) 77.8 % (42-78); WHITE BLOOD COUNT 19.2 10^3/uL (4.0-10.5)
[2017-02-15 04:40] LABS: ANION GAP 10 (5-19); BLOOD UREA NITROGEN 15 mg/dL (7-20); CARBON DIOXIDE 18 mmol/L (22-30); CHLORIDE 114 mmol/L (98-107); CREATININE RESULT 0.81 mg/dL (0.52-1.25); GLUCOSE 159 mg/dL (75-110); POTASSIUM 4.1 mmol/L (3.6-5.0); SODIUM 142.2 mmol/L (137-145)
[2017-02-15] MEDS ORDERED: POTASSI CL 20 MEQ/D5-1/2NS 1L 1000 ML IV PRN (05:30)
[2017-02-15] MEDS: HEPARIN SOD (PORCINE) 5,000 UNIT/ML 1 ML SYRINGE SUBCUT SCH ×3 (05:38→22:08)
[2017-02-15] MEDS ORDERED: INSULIN LISPRO 100 UNIT/ML 3 ML VIAL SUBCUT PRN (08:09)
[2017-02-15 08:23] LABS: ANION GAP 15 (5-19); BLOOD UREA NITROGEN 13 mg/dL (7-20); CALCIUM 9.9 mg/dL (8.4-10.2); CARBON DIOXIDE 15 mmol/L (22-30); CHLORIDE 112 mmol/L (98-107); GLUCOSE 135 mg/dL (75-110); POTASSIUM 4.3 mmol/L (3.6-5.0); SODIUM 141.6 mmol/L (137-145)
[2017-02-15] MEDS: DOCUSATE SODIUM 100 MG CAPSULE PO SCH ×2 (09:47→17:52)
[2017-02-15] MEDS: LISINOPRIL 5 MG TABLET PO SCH (09:47)
[2017-02-15] MEDS: ONDANSETRON HCL INJ/PF 4 MG/2 ML SDV IV PRN ×2 (09:49→18:01)
[2017-02-15] MEDS ORDERED: INSULIN GLARGINE,HUM.REC.ANLOG 300 UNIT/3 ML INSULN.PEN SUBCUT SCH (10:00)
--- NOTE | 2017-02-15 10:51 | PDOC PROGRESS REPORT ---
Subjective Progress Note for:: 02/15/17 Subjective:: reason for visit: f/u DKA, n/v hospital course: per other's notes -"JUAN PABLO COREY is a 26 year old male with a past medical history of insulin-dependent diabetes who has had limited access to limits he is recently relocated to the area from [place]. He has otherwise felt well but rationing his insulin over the last few days. Over the last 24 hours he has had polyuria polydipsia abdominal pain nausea vomiting prompting her to seek evaluation emergency room earlier in the day was found to be without acidosis and was discharged with a insulin prescription however became acutely worse prompting reevaluation and significantly worse labs including a bicarb of only 7 and increased anion gap. He is referred to the hospital for admission." 1st attempt to d/c insulin gtt yesterday failed with recurrent, worsening acidosis so he was continued on during the night until this morning when his BSs dropped to low normal and now on hold for the last several hours. states his nausea is improved but not ersolved, denies chest pain, palpitations, fevers /chills, cough with phlegm, swollen glands, sore throat, rash. he reports a prior hospitalization in [place] due to "running out of my insulin" requiring a couple day stay in hospital before resolution. ROS: all systems reviewed, see above, remaining systems negative Physical Exam Vital Signs: Temp Pulse Resp BP Pulse Ox 98.6 F 100 12 152/81 H 100 02/15/17 08:10 02/15/17 08:10 02/15/17 08:10 02/15/17 08:10 02/15/17 08:10 Intake & Output 02/14/17 02/15/17 02/16/17 06:59 06:59 06:59 Intake Total 3782 Balance 3782 Weight 54.7 kg General appearance: PRESENT: thin, well-developed, well-nourished Head exam: PRESENT: atraumatic, normocephalic Eye exam: PRESENT: conjunctival injection, scleral icterus. ABSENT: EOMI Mouth exam: PRESENT: dry mucosa, neck supple Neck exam: PRESENT: full ROM. ABSENT: tracheal deviation Respiratory exam: PRESENT: clear to auscultation lyndsay. ABSENT: accessory muscle use Cardiovascular exam: PRESENT: RRR. ABSENT: systolic murmur, tachycardia Pulses: PRESENT: normal radial pulses, normal dorsalis pedis pul GI/Abdominal exam: PRESENT: normal bowel sounds, soft. ABSENT: guarding, rebound, rigid, tenderness Extremities exam: ABSENT: calf tenderness, pedal edema Musculoskeletal exam: PRESENT: ambulatory, full ROM Neurological exam: PRESENT: alert, awake, oriented to person, oriented to place , oriented to time, oriented to situation Psychiatric exam: PRESENT: appropriate affect, normal mood Skin exam: PRESENT: dry, warm Results Laboratory Results: 02/15/17 03:46 02/15/17 07:44 02/14/17 02/14/17 02/14/17 11:45 16:10 20:16 WBC RBC Hgb Hct MCV MCH MCHC RDW Plt Count Seg Neutrophils % Lymphocytes % Monocytes % Eosinophils % Basophils % Absolute Neutrophils Absolute Lymphocytes Absolute Monocytes Absolute Eosinophils Absolute Basophils Sodium 141.5 142.8 143.3 Potassium 4.7 5.2 H 4.8 Chloride 113 H 111 H 110 H Carbon Dioxide 11 L 7 L* 6 L* Anion Gap 18 25 H 27 H BUN 12 15 17 Creatinine 0.77 0.82 0.98 Est GFR ( Amer) > 60 > 60 > 60 Est GFR (Non-Af Amer) > 60 > 60 > 60 Glucose 144 H 341 H 302 H Calcium 9.3 9.9 10.3 H 02/15/17 02/15/17 02/15/17 00:16 03:46 03:46 WBC 19.2 H RBC 4.11 L Hgb 12.1 L Hct 36.3 L MCV 88 MCH 29.4 MCHC 33.3 RDW 13.8 Plt Count 299 Seg Neutrophils % 77.8 Lymphocytes % 14.4 Monocytes % 7.6 Eosinophils % 0.0 Basophils % 0.2 Absolute Neutrophils 15.0 H Absolute Lymphocytes 2.8 Absolute Monocytes 1.5 H Absolute Eosinophils 0.0 Absolute Basophils 0.0 Sodium 143.8 142.2 Potassium 4.6 4.1 Chloride 115 H 114 H Carbon Dioxide 13 L 18 L Anion Gap 16 10 BUN 16 15 Creatinine 0.88 0.81 Est GFR ( Amer) > 60 > 60 Est GFR (Non-Af Amer) > 60 > 60 Glucose 236 H 159 H Calcium 10.3 H 10.0 02/15/17 07:44 WBC RBC Hgb Hct MCV MCH MCHC RDW Plt Count Seg Neutrophils % Lymphocytes % Monocytes % Eosinophils % Basophils % Absolute Neutrophils Absolute Lymphocytes Absolute Monocytes Absolute Eosinophils Absolute Basophils Sodium 141.6 Potassium 4.3 Chloride 112 H Carbon Dioxide 15 L Anion Gap 15 BUN 13 Creatinine 0.80 Est GFR ( Amer) > 60 Est GFR (Non-Af Amer) > 60 Glucose 135 H Calcium 9.9 Assessment & Plan - Diagnosis (1) DKA (diabetic ketoacidoses) Qualifiers: Diabetes mellitus type: type 1 Diabetes mellitus complication detail: without coma Qualified Code(s): E10.10 - Type 1 diabetes mellitus with ketoacidosis without coma Is this a current diagnosis for this admission?: Yes (2) Hyperkalemia Is this a current diagnosis for this admission?: Yes (3) Leukocytosis Qualifiers: Leukocytosis type: leukemoid reaction Qualified Code(s): D72.823 - Leukemoid reaction Is this a current diagnosis for this admission?: Yes (4) Tachycardia Is this a current diagnosis for this admission?: Yes (5) Vomiting Qualifiers: Vomiting type: unspecified Vomiting Intractability: non-intractable Nausea presence: with nausea Qualified Code(s): R11.2 - Nausea with vomiting, unspecified Is this a current diagnosis for this admission?: Yes (6) Hyperglycemia due to type 1 diabetes mellitus Is this a current diagnosis for this admission?: Yes - Time Time Spent with patient: 35 or more minutes Medications reviewed and adjusted accordingly: Yes Anticipated discharge: Home Within: within 24 hours - Plan Summary Plan Summary: improved overall but not back to baseline, will make chg to basal/bolus regimen , continue IVFs and monitor for recurrent acidosis with repeat BMP later today, advance diet as tolerated. hopefullly home in am
[2017-02-15] MEDS: PROMETHAZINE HCL 25 MG SUPP.RECT PR PRN ×2 (12:01→22:08)
[2017-02-15] MEDS ORDERED: NORMAL SALINE 1000 ML 1,000 ML IV PRN (12:12)
[2017-02-15 12:28] LABS: BLOOD UREA NITROGEN 16 mg/dL (7-20); GLUCOSE 331 mg/dL (75-110); POTASSIUM 4.5 mmol/L (3.6-5.0)
[2017-02-15 12:43] LABS: CARBON DIOXIDE 11 mmol/L (22-30); CHLORIDE 108 mmol/L (98-107); SODIUM 141.6 mmol/L (137-145)
[2017-02-15 12:45] LABS: ANION GAP 23 (5-19)
[2017-02-15] MEDS ORDERED: NORMAL SALINE 100 ML with INSULIN REGULAR, HUMAN 100 UNIT IV PRN ×2 (13:01)
[2017-02-15 13:40] LABS: LIPASE 22.1 U/L (23-300)
--- NOTE | 2017-02-15 16:14 | RADIOLOGY REPORT (SQ) ---
EXAM DESCRIPTION: CHEST PA/LAT COMPLETED DATE/TIME: 02/15/2017 4:07 pm REASON FOR STUDY: dyspnea COMPARISON: None. EXAM PARAMETERS: NUMBER OF VIEWS: two views TECHNIQUE: Digital Frontal and Lateral radiographic views of the chest acquired. RADIATION DOSE: NA LIMITATIONS: none FINDINGS: LUNGS AND PLEURA: No opacities, masses or pneumothorax. No pleural effusion. MEDIASTINUM AND HILAR STRUCTURES: No masses or contour abnormalities. HEART AND VASCULAR STRUCTURES: Heart normal size. No evidence for failure. BONES: No acute findings. HARDWARE: None in the chest. OTHER: No other significant finding. IMPRESSION: NO SIGNIFICANT RADIOGRAPHIC FINDING IN THE CHEST. TECHNICAL DOCUMENTATION: JOB ID: [id number] [employer]- All Rights Reserved
--- NOTE | 2017-02-15 16:15 | RADIOLOGY REPORT (SQ) ---
EXAM DESCRIPTION: ABDOMEN 2 VIEWS COMPLETED DATE/TIME: 02/15/2017 4:07 pm REASON FOR STUDY: nausea and vomiting COMPARISON: None. NUMBER OF VIEWS: Two views. TECHNIQUE: Supine and erect/decubitus radiographic images of the abdomen acquired. LIMITATIONS: None. FINDINGS: FREE AIR: None. No abnormal gas collections. LUNG BASES: Clear. BOWEL GAS PATTERN: Nonobstructive pattern. No dilated loops or air fluid levels. Prominent stool. CALCIFICATIONS: No suspicious calcifications. SOFT TISSUES: No gross mass or suggestion of organomegaly. HARDWARE: None in the abdomen. BONES: No acute fracture. No worrisome bone lesions. OTHER: No other significant finding. IMPRESSION: NO RADIOGRAPHIC EVIDENCE FOR ACUTE ABDOMINAL DISEASE. PROMINENT STOOL, POSSIBLE CONSTIP ATION. TECHNICAL DOCUMENTATION: JOB ID: [id number]- All Rights Reserved
[2017-02-15 17:07] LABS: ANION GAP 17 (5-19); BLOOD UREA NITROGEN 16 mg/dL (7-20); CALCIUM 10.2 mg/dL (8.4-10.2); CARBON DIOXIDE 18 mmol/L (22-30); CHLORIDE 110 mmol/L (98-107); CREATININE RESULT 0.77 mg/dL (0.52-1.25); GLUCOSE 120 mg/dL (75-110); POTASSIUM 4.2 mmol/L (3.6-5.0); SODIUM 144.6 mmol/L (137-145)
[2017-02-15] MEDS: POTASSI CL 20 MEQ/D5-1/2NS 1L 1,000 ML IV PRN (17:46)
[2017-02-15 21:08] LABS: ANION GAP 17 (5-19); BLOOD UREA NITROGEN 14 mg/dL (7-20); CALCIUM 10.1 mg/dL (8.4-10.2); CARBON DIOXIDE 18 mmol/L (22-30); CHLORIDE 107 mmol/L (98-107); CREATININE RESULT 0.71 mg/dL (0.52-1.25); GLUCOSE 145 mg/dL (75-110); POTASSIUM 4.3 mmol/L (3.6-5.0); SODIUM 142.4 mmol/L (137-145)
[2017-02-16 00:59] LABS: ANION GAP 13 (5-19); BLOOD UREA NITROGEN 13 mg/dL (7-20); CALCIUM 9.6 mg/dL (8.4-10.2); CARBON DIOXIDE 20 mmol/L (22-30); CHLORIDE 107 mmol/L (98-107); CREATININE RESULT 0.69 mg/dL (0.52-1.25); GLUCOSE 242 mg/dL (75-110); SODIUM 139.6 mmol/L (137-145)
[2017-02-16] MEDS: POTASSI CL 20 MEQ/D5-1/2NS 1L 1,000 ML IV PRN (02:39)
[2017-02-16] MEDS: PROMETHAZINE HCL 25 MG SUPP.RECT PR PRN ×2 (04:37→08:56)
[2017-02-16 05:09] LABS: ANION GAP 14 (5-19); BLOOD UREA NITROGEN 14 mg/dL (7-20); CALCIUM 9.7 mg/dL (8.4-10.2); CARBON DIOXIDE 21 mmol/L (22-30); CHLORIDE 105 mmol/L (98-107); CREATININE RESULT 0.69 mg/dL (0.52-1.25); GLUCOSE 274 mg/dL (75-110); POTASSIUM 4.1 mmol/L (3.6-5.0)
[2017-02-16] MEDS: HEPARIN SOD (PORCINE) 5,000 UNIT/ML 1 ML SYRINGE SUBCUT SCH ×2 (06:35→12:57)
[2017-02-16] MEDS ORDERED: INSULIN LISPRO 100 UNIT/ML 3 ML VIAL SUBCUT PRN (07:25)
[2017-02-16] MEDS ORDERED: 1/2 NORMAL SALINE 1,000 ML IV PRN (07:26)
[2017-02-16] MEDS ORDERED: INSULIN GLARGINE,HUM.REC.ANLOG 300 UNIT/3 ML INSULN.PEN SUBCUT SCH (08:00)
[2017-02-16 08:48] LABS: ANION GAP 16 (5-19); BLOOD UREA NITROGEN 14 mg/dL (7-20); CALCIUM 9.6 mg/dL (8.4-10.2); CARBON DIOXIDE 20 mmol/L (22-30); CHLORIDE 104 mmol/L (98-107); CREATININE RESULT 0.67 mg/dL (0.52-1.25); GLUCOSE 310 mg/dL (75-110); POTASSIUM 4.5 mmol/L (3.6-5.0); SODIUM 139.8 mmol/L (137-145)
[2017-02-16] MEDS: LISINOPRIL 5 MG TABLET PO SCH (08:55)
[2017-02-16] MEDS: DOCUSATE SODIUM 100 MG CAPSULE PO SCH (08:56)
[2017-02-16] MEDS ORDERED: 1/2 NORMAL SALINE 2,000 ML IV ONE (11:15)
[2017-02-16 12:45] LABS: ANION GAP 10 (5-19); BLOOD UREA NITROGEN 13 mg/dL (7-20); CALCIUM 9.1 mg/dL (8.4-10.2); CARBON DIOXIDE 22 mmol/L (22-30); CHLORIDE 104 mmol/L (98-107); CREATININE RESULT 0.58 mg/dL (0.52-1.25); GLUCOSE 167 mg/dL (75-110); SODIUM 135.5 mmol/L (137-145)
[2017-02-16] MEDS ORDERED: NYSTATIN/DEXAMETH/DIPHEN SUSP 120 ML PO SCH (14:00)
[2017-02-16 14:52] VITALS: BP 130/85
--- NOTE | 2017-02-16 16:18 | PDOC DISCHARGE SUMMARY ---
General - Admit/Disc Date/PCP Admission Date/Primary Care Provider: 02/14/17 03:38 Discharge Date: 02/16/17 - Discharge Diagnosis (1) DKA (diabetic ketoacidoses) Is this a current diagnosis for this admission?: YesSummary: he was refractory and labile, rapidly dropping his CO2 or BS confirming insulin sensitivity. he finally stabilized and is tolerating fluids well enough to want to go home and is insisting on discharge, in reality he is stable for d/c home. Rxs provided for insulin and he states he has necessary tools at home to monitor his BSs. (2) Hyperkalemia Is this a current diagnosis for this admission?: YesSummary: resolved with IVFs (3) Leukocytosis Is this a current diagnosis for this admission?: YesSummary: likely leukemoid reaction to the severe acidosis; improved. no infectious etiology found. (4) Tachycardia Is this a current diagnosis for this admission?: YesSummary: resolved with IVFs (5) Vomiting Is this a current diagnosis for this admission?: Yes (6) Hyperglycemia due to type 1 diabetes mellitus Is this a current diagnosis for this admission?: Yes - Additional Information Discharge Diet: Diabetic Discharge Activity: Activity As Tolerated Home Medications: Insulin Glargine,Hum.rec.anlog [Lantus Insulin 100 Unit/mL] 23 unit SUBCUT QHS 02/14/17 Insulin Lispro [Humalog Insulin (Lispro) 100 unit/mL] 0 unit SUBCUT .SLD SCALE 02/14/17 Acetaminophen [Tylenol 325 mg Tablet] 325 mg PO Q4HP PRN tablet 02/16/17 Insulin Glargine,Hum.rec.anlog [Lantus Insulin 100 Unit/mL] 23 unit SUBCUT QAM # 1 insuln.pen 02/16/17 Insulin Lispro [Humalog Insulin (Lispro) 100 unit/mL] 0 - 12 unit SUBCUT ACHSP PRN 30 Days 02/16/17 Lisinopril [Prinivil 5 mg Tablet] 5 mg PO DAILY #30 02/16/17 Nystatin/Dexameth/Diphen [Magic Mouthwash (Omh Formula) Susp] 5 ml PO QID #120 ml 02/16/17 History of Present Illness Patient complains of: nausea and vomiting History of Present Illness: JUAN PABLO COREY is a 26 year old male Hospital Course Hospital Course: hospital course: per other's notes -"JUAN PABLO COREY is a 26 year old male with a past medical history of insulin-dependent diabetes who has had limited access to limits he is recently relocated to the area from [place]. He has otherwise felt well but rationing his insulin over the last few days. Over the last 24 hours he has had polyuria polydipsia abdominal pain nausea vomiting prompting her to seek evaluation emergency room earlier in the day was found to be without acidosis and was discharged with a insulin prescription however became acutely worse prompting reevaluation and significantly worse labs including a bicarb of only 7 and increased anion gap. He is referred to the hospital for admission." 1st attempt to d/c insulin gtt yesterday failed with recurrent, worsening acidosis so he was continued on during the night until this morning when his BSs dropped to low normal and now on hold for the last several hours. states his nausea is improved but not ersolved, denies chest pain, palpitations, fevers /chills, cough with phlegm, swollen glands, sore throat, rash. he reports a prior hospitalization in [place] due to "running out of my insulin" requiring a couple day stay in hospital before resolution. he spent some time on and off insulin gtt before finally stabilizing with resolution of his acidosis. he is battling chronic nausea and likely has gastroparesis but would like to discuss with a PCP before proceeding with further evaluation. he has demonstrated enough oral intake to maintain hydration at home and is stable for d/c home. Physical Exam Vital Signs: Temp Pulse Resp BP Pulse Ox 98.4 F 70 19 130/85 H 98 02/16/17 14:08 02/16/17 14:08 02/16/17 14:08 02/16/17 12:51 02/16/17 14:08 Intake & Output 02/15/17 02/16/17 02/17/17 06:59 06:59 06:59 Intake Total 3782 2509 462 Balance 3782 2509 462 Weight 54.7 kg 54.5 kg General appearance: PRESENT: no acute distress, well-developed, well-nourished Eye exam: PRESENT: EOMI Respiratory exam: PRESENT: clear to auscultation lyndsay GI/Abdominal exam: PRESENT: normal bowel sounds, soft. ABSENT: tenderness Musculoskeletal exam: PRESENT: ambulatory, full ROM Neurological exam: PRESENT: alert, awake, oriented to person, oriented to place , oriented to time, oriented to situation Results Laboratory Results: 02/15/17 03:46 02/16/17 12:06 02/15/17 02/15/17 02/15/17 15:40 16:41 20:19 Sodium Cancelled 144.6 142.4 Potassium Cancelled 4.2 4.3 Chloride Cancelled 110 H 107 Carbon Dioxide Cancelled 18 L 18 L Anion Gap Cancelled 17 17 BUN Cancelled 16 14 Creatinine Cancelled 0.77 0.71 Est GFR ( Amer) Cancelled > 60 > 60 Est GFR (Non-Af Amer) Cancelled > 60 > 60 Glucose Cancelled 120 H 145 H Calcium Cancelled 10.2 10.1 02/16/17 02/16/17 02/16/17 00:21 04:25 07:50 Sodium 139.6 140.0 139.8 Potassium 4.0 4.1 4.5 Chloride 107 105 104 Carbon Dioxide 20 L 21 L 20 L Anion Gap 13 14 16 BUN 13 14 14 Creatinine 0.69 0.69 0.67 Est GFR ( Amer) > 60 > 60 > 60 Est GFR (Non-Af Amer) > 60 > 60 > 60 Glucose 242 H 274 H 310 H Calcium 9.6 9.7 9.6 02/16/17 12:06 Sodium 135.5 L Potassium 4.0 Chloride 104 Carbon Dioxide 22 Anion Gap 10 BUN 13 Creatinine 0.58 Est GFR ( Amer) > 60 Est GFR (Non-Af Amer) > 60 Glucose 167 H Calcium 9.1 Impressions: Abdomen X-Ray 02/15/17 00:00 IMPRESSION: NO RADIOGRAPHIC EVIDENCE FOR ACUTE ABDOMINAL DISEASE. PROMINENT STOOL, POSSIBLE CONSTIPATION. Chest X-Ray 02/15/17 00:00 IMPRESSION: NO SIGNIFICANT RADIOGRAPHIC FINDING IN THE CHEST. Qualifiers PATEINT BEING DISCHARGED WITH ANY OF THE FOLLOWING DIAGNOSIS?: No VTE patient discharged on overlapping Therapy?: No Reason(s) for not prescribing Overlap Therapy:: Not indicated Plan Discharge Plan: d/c home with Rxs for his insulin; needs to establish and f/u with PCP of choice , return to the ED for worsening symptoms; stay hydrated Time Spent: Greater than 30 Minutes
== END 2017-02-16 16:01 | disposition home or self-care (01) | DRG 638 ==
LOC: ER 23:50 → EH 02-14 03:38 → UNDOADMIN 02-14 04:11 → 3W 02-14 05:54
PROVIDERS: ADMIT Internal Medicine; ATTEND Internal Medicine
DX: E10.10 Type 1 diabetes mellitus with ketoacidosis without coma (principal); Z68.1 Body mass index [BMI] 19.9 or less, adult; E87.5 Hyperkalemia; R00.0 Tachycardia, unspecified; D72.823 Leukemoid reaction; E10.43 Type 1 diabetes mellitus with diabetic autonomic (poly)neuropathy; K31.84 Gastroparesis; E86.0 Dehydration; R63.6 Underweight; Z79.4 Long term (current) use of insulin; Z79.899 Other long term (current) drug therapy
CPT/HCPCS: 36415; 71020; 74020; 80048; 80053; 80307; 81001; 82150; 82803; 82962; 83036; 83690; 83735; 84100; 85025; 93005; 93010; 96361; 96365; 96375; 99285; J0610; J1644; J1815; J2405; J2765; J3480; J3490; J7030; J7120

== ENCOUNTER 2017-07-06 18:45 | Emergency (ER) | payer OTHER ==
[2017-07-06] MEDS ORDERED: NORMAL SALINE 1000 ML 1,000 ML IV ONE ×2 (21:00→21:37)
[2017-07-06 21:14] LABS: ABSOLUTE BASOPHILS # (AUTO) 0.1 10^3/uL (0.0-0.2); ABSOLUTE EOSINOPHILS # (AUTO) 0.1 10^3/uL (0.0-0.6); ABSOLUTE MONOCYTES (AUTO) 0.4 10^3/uL (0.1-1.4); BASOPHILS % (AUTO) 0.8 % (0-2); EOSINOPHILS % (AUTO) 1.1 % (0-6); HEMATOCRIT 44.2 % (37.9-51.0); HEMOGLOBIN 15.1 g/dL (13.5-17.0); HGB HCT DIFFERENCE 1.1; LYMPHOCYTES % (AUTO) 18.7 % (13-45); MEAN CORPUSCULAR HEMOGLOBIN 29.5 pg (27.0-33.4); MEAN CORPUSCULAR HGB CONC 34.2 g/dL (32.0-36.0); MEAN CORPUSCULAR VOLUME 86 fl (80-97); MONOCYTES % (AUTO) 4.1 % (3-13); RED BLOOD COUNT 5.12 10^6/uL (4.35-5.55); SEGMENTED NEUTROPHILS % (AUTO) 75.3 % (42-78); WHITE BLOOD COUNT 10.6 10^3/uL (4.0-10.5)
[2017-07-06 21:24] LABS: VENOUS BLOOD BASE EXCESS 1.2 mmol/L; VENOUS BLOOD HCO3 28.2 mmol/L (20-32); VENOUS BLOOD PCO2 53.8 mmHg (35-63); VENOUS BLOOD PH 7.34 (7.30-7.42)
[2017-07-06 21:30] LABS: ALANINE AMINOTRANSFERASE 25 U/L (21-72); ALBUMIN 4.9 g/dL (3.5-5.0); ALKALINE PHOSPHATASE 64 U/L (38-126); ANION GAP 13 (5-19); ASPARTATE AMINO TRANSFERASE 31 U/L (17-59); BILIRUBIN,DIRECT 0.3 mg/dL (0.0-0.4); BILIRUBIN,TOTAL 0.7 mg/dL (0.2-1.3); BLOOD UREA NITROGEN 12 mg/dL (7-20); CALCIUM 10.5 mg/dL (8.4-10.2); CARBON DIOXIDE 28 mmol/L (22-30); CHLORIDE 99 mmol/L (98-107); CREATININE RESULT 0.68 mg/dL (0.52-1.25); GLUCOSE 190 mg/dL (75-110); POTASSIUM 3.6 mmol/L (3.6-5.0); TOTAL PROTEIN 9.1 g/dL (6.3-8.2)
--- NOTE | 2017-07-06 21:37 | ER Document Report ---
HPI - HPI Pain Level: 4 Notes: Patient is a 26-year-old female with a history of type 1 insulin-dependent diabetic who presents the ED complaining of elevated blood glucose and an episode of feeling nauseous about 3 hours ago. Patient states that when he checked his blood glucose it was at 250. Patient states that he has had DKA in the past, and wanted to come to the ED to make sure that he was not going into DKA. Patient states that he is currently asymptomatic otherwise and his blood glucose has decreased. Patient states that he is still eating and drinking without difficulties. He is urinating normally and having normal bowel movements. He denies any other recent illness. No other concerns or complaints. Denies any headache, fever, neck pain, changes in vision/speech/ mentation/hearing, URI, sore throat, chest pain, palpitations, syncope, cough, shortness of breath, wheeze, dyspnea, abdominal pain, vomiting/diarrhea, urinary retention, dysuria, hematuria, loss of control of bowel or bladder, numbness/tingling, muscle paralysis/weakness, or rash. - ROS Notes: REVIEW OF SYSTEMS: CONSTITUTIONAL : Denies fever, chills, or sweats. Denies recent illness. EENT: Denies eye, ear, throat, or mouth pain or symptoms. Denies nasal or sinus congestion or discharge. Denies throat, tongue, or mouth swelling or difficulty swallowing. CARDIOVASCULAR: Denies chest pain. Denies palpitations or racing or irregular heart beat. Denies ankle edema. RESPIRATORY: Denies cough, cold, or chest congestion. Denies shortness of breath, difficulty breathing, or wheezing. GASTROINTESTINAL: Denies abdominal pain or distention. see hpi. Denies blood in vomitus, stools, or per rectum. Denies black, tarry stools. Denies constipation. GENITOURINARY: Denies difficulty urinating, painful urination, burning, frequency, blood in urine, or discharge. MUSCULOSKELETAL: Denies back or neck pain or stiffness. Denies joint pain or swelling. SKIN: Denies rash, lesions or sores. NEUROLOGICAL: Denies confusion or altered mental status. Denies passing out or loss of consciousness. Denies dizziness or lightheadedness. Denies headache. Denies weakness or paralysis or loss of use of either side. Denies problems with gait or speech. Denies sensory loss, numbness, or tingling. Denies seizures. PSYCHIATRIC: Denies anxiety or stress. Denies depression, suicidal ideation, or homicidal ideation. ALL OTHER SYSTEMS REVIEWED AND NEGATIVE. Dictation was performed using [employer] voice recognition software - DERM Skin Color: Normal, [place] Past Medical History - Social History Smoking Status: Current Some Day Smoker Frequency of alcohol use: Occasional Drug Abuse: Marijuana Family History: None Patient has suicidal ideation: No Patient has homicidal ideation: No Endocrine Medical History: Reports: Hx Diabetes Mellitus Type 1, Hx Diabetes Mellitus Type 2 Renal/ Medical History: Denies: Hx Peritoneal Dialysis - Immunizations Immunizations up to date: Yes Hx Diphtheria, Pertussis, Tetanus Vaccination: Yes Vertical Provider Document - CONSTITUTIONAL Agree With Documented VS: Yes Notes: PHYSICAL EXAMINATION: GENERAL: Well-appearing, well-nourished and in no acute distress. A&ox4 HEAD: Atraumatic, normocephalic. EYES: Pupils equal round and reactive to light, extraocular movements intact, sclera anicteric, conjunctiva are normal. ENT: Nares patent and without discharge. oropharynx clear without exudates. No tonsilar hypertrophy or erythema. Moist mucous membranes. NECK: Normal range of motion, supple without lymphadenopathy LUNGS: Breath sounds clear to auscultation bilaterally and equal. No wheezes rales or rhonchi. HEART: Regular rate and rhythm without murmurs, rubs, gallops. ABDOMEN: Soft, nontender, nondistended abdomen. No guarding, no rebound. No masses appreciated. Normal bowel sounds present. No CVA tenderness bilaterally. Musculoskeletal: Ext b/l: FROM to passive/active. Strength 5+/5. Extremities: No cyanosis, clubbing, or edema b/l. Peripheral pulses 2+. Capillary refill less than 3 seconds. NEUROLOGICAL: MMSE intact. Cranial nerves grossly intact. Normal speech, normal gait. Normal sensory, motor exams PSYCH: Normal mood, normal affect. SKIN: Warm, Dry, normal turgor, no rashes or lesions noted. - INFECTION CONTROL TRAVEL OUTSIDE OF THE [place] IN LAST 30 DAYS: No - RESPIRATORY O2 Sat by Pulse Oximetry: 100 Course - Re-evaluation Re-evalutation: 07/06/17 22:34 Patient is an afebrile, well-hydrated, 26-year-old male who presents ED with elevated blood glucose levels, but is not currently in DKA. Vitals are stable. PE is otherwise unremarkable. Pt is tolerating PO and HR ranges from 100-115 roughly (normal per patient- had eval with EKG etc in the past for tachycardia) . CBC, CMP, venous blood gas are all unremarkable for any acute pathology. His urinalysis did show some ketones, but patient is otherwise stable and asymptomatic. Patient has been given 2 L of normal saline. Low suspicion for any severe dehydration, metabolic acidosis, altered mental status, acute abdomen , sepsis, meningitis, or other systemic emergent condition at this time. Patient is aware that his condition can change from initial presentation and he needs to monitor symptoms closely and seek medical attention with any acute changes. Continue insulin as directed. Monitor blood glucose levels closely. Conservative measures for symptoms otherwise. Recheck with your PCM in 3-5 days. Return to the ED with any worsening/concerning symptoms otherwise as reviewed in discharge. Patient is in agreement. - Vital Signs Vital signs: Temp Pulse Resp BP Pulse Ox 98.1 F 117 H 14 143/91 H 100 07/06/17 18:55 07/06/17 18:55 07/06/17 18:55 07/06/17 18:55 07/06/17 18:55 - Laboratory Result Diagrams: 07/06/17 20:54 07/06/17 20:54 Laboratory results interpreted by me: 07/06/17 07/06/17 07/06/17 18:58 20:44 20:54 WBC 10.6 H Glucose POC Glucose 270 H 163 H Calcium Total Protein 07/06/17 20:54 WBC Glucose 190 H POC Glucose Calcium 10.5 H Total Protein 9.1 H Discharge - Discharge Clinical Impression: Blood glucose elevated Condition: Stable Disposition: HOME, SELF-CARE Additional Instructions: Maintain adequate fluid and food intake Low glucose/sugar diet. Continue home medications as directed tylenol if needed Monitor for any worsening symptoms Make sure you are staying hydrated enough to urinate and have normal BM's Recheck with your PCM in 3-5 days Consider consult with Endocrinology for ongoing/worsening symptoms Return to the ED with any worsening symptoms and/or development of fever, headache, chest pain, palpitations, syncope, shortness of breath, trouble breathing, abdominal pain, n/v/d, blood in stool/urine, weakness, or other worsening symptoms that are concerning to you. Forms: Elevated Blood Pressure, Smoking Cessation Education Referrals: SUNDAY PRATHER MD [NO LOCAL MD] - Follow up as needed
[2017-07-06 21:55] LABS: APPEARANCE,URINE CLEAR; BILIRUBIN,URINE NEGATIVE (NEGATIVE); GLUCOSE, URINE >=500 mg/dL (NEGATIVE); KETONES,URINE 20 mg/dL (NEGATIVE); LEUKOCYTE ESTERASE,URINE NEGATIVE (NEGATIVE); NITRITE,URINE NEGATIVE (NEGATIVE); PROTEIN,URINE 30 mg/dL (NEGATIVE); UROBILINOGEN,URINE NEGATIVE mg/dL (<2.0)
[2017-07-06 22:50] VITALS: BP 144/93
== END 2017-07-06 22:50 | disposition home or self-care (01) ==
LOC: ER 18:45
DX: E10.65 Type 1 diabetes mellitus with hyperglycemia (principal); R11.0 Nausea; F17.200 Nicotine dependence, unspecified, uncomplicated
CPT/HCPCS: 99285; 96360; 96361; 36415; 82962; 85025; 80053; 81001; 82803; J7030